=== PATIENT | female | born 1950 | race Caucasian/White ===

== ENCOUNTER 2025-06-07 12:14 | Emergency (ER) | payer MEDICARE, BC ==
[2025-06-07 12:44] LABS: APPEARANCE,URINE CLEAR (CLEAR); GLUCOSE,URINE NEGATIVE (NEGATIVE); OCCULT BLOOD,URINE TRACE-INTACT (NEGATIVE)
[2025-06-07 12:49] LABS: SQUAMOUS EPITHELIAL CELLS,UR FEW /HPF
== END 2025-06-07 13:15 | disposition home or self-care (01) ==
LOC: JP.ED 12:14
DX: N39.0 Urinary tract infection, site not specified (principal); I10 Essential (primary) hypertension; E78.00 Pure hypercholesterolemia, unspecified; Z79.899 Other long term (current) drug therapy; Z88.0 Allergy status to penicillin
CPT/HCPCS: 81001; 99283